=== PATIENT | male | born 1935 | race Caucasian/White ===

== ENCOUNTER 2016-10-18 13:07 | Emergency (ER) | payer MEDICARE, OTHER ==
[~2016-10-18] VITALS: Ht 177.8 cm; Wt 125.0 kg
[~2016-10-18 13:07] MED LIST: AMLO10 PO; ASPI81TA82 PO; ATOR20TA PO; CLOP75 PO; DOXA1 PO; ISOS60 PO; LOTE20TA PO; METO25 PO; NITR0.4S SL; VITA-13
[2016-10-18 13:10] VITALS: BP 140/67; PULSE 61; RESP 16; TEMP 97.8; O2SAT 92
--- NOTE | 2016-10-18 13:29 | PD ---
Physical Exam Date Seen by Provider: Oct 18, 2016 Time Seen by Provider: 13:29 Data Data Last Documented VS Vital Signs Date Time Temp Pulse Resp B/P Pulse Ox O2 Delivery O2 Flow Rate FiO2 10/18/16 13:10 97.8 61 16 140/67 92 10/18/16 13:10 Room Air Orders Electrocardiogram (10/18/16 13:27) B-Type Natriuretic Peptide (10/18/16 13:27) Ckmb (Isoenzyme) Profile (10/18/16 13:27) Complete Blood Count With Diff (10/18/16 13:27) Comprehensive Metabolic Panel (10/18/16 13:27) Magnesium (Mg) (10/18/16 13:27) Prothrombin Time / Inr (Pt) (10/18/16 13:27) Act Partial Throm Time (Ptt) (10/18/16 13:27) Troponin I (10/18/16 13:27) Chest, Single Ap (10/18/16 13:27) Iv Access Insert/Monitor (10/18/16 13:27) Aspirin Chew (Aspirin Chew) (10/18/16 13:30) Sodium Chloride 0.9% Flush (Ns Flush) (10/18/16 13:30) Labs Laboratory Tests Test 10/18/16 13:30 White Blood Count 7.4 TH/MM3 Red Blood Count 4.44 MIL/MM3 Hemoglobin 13.6 GM/DL Hematocrit 40.0 % Mean Corpuscular Volume 90.0 FL Mean Corpuscular Hemoglobin 30.6 PG Mean Corpuscular Hemoglobin 34.0 % Concent Red Cell Distribution Width 13.8 % Platelet Count 157 TH/MM3 Mean Platelet Volume 8.0 FL Neutrophils (%) (Auto) 64.4 % Lymphocytes (%) (Auto) 21.1 % Monocytes (%) (Auto) 8.5 % Eosinophils (%) (Auto) 5.4 % Basophils (%) (Auto) 0.6 % Neutrophils # (Auto) 4.7 TH/MM3 Lymphocytes # (Auto) 1.6 TH/MM3 Monocytes # (Auto) 0.6 TH/MM3 Eosinophils # (Auto) 0.4 TH/MM3 Basophils # (Auto) 0.0 TH/MM3 CBC Comment DIFF FINAL Differential Comment Faustino Carr Oct 18, 2016 13:29
[2016-10-18] MEDS ORDERED: SODIUM CHLORIDE 0.9% FLUSH 10 ML FLUSH IVF PRN (13:30)
[2016-10-18] MEDS ORDERED: ASPIRIN 81 MG CHEW TAB PO ONE (13:30)
[2016-10-18 13:46] LABS: AUTOMATED NEUTROPHIL # 4.7 TH/MM3 (1.8-7.7); BASOPHIL % 0.6 % (0.0-2.0); EOSINOPHIL # 0.4 TH/MM3 (0-0.4); EOSINOPHIL % 5.4 % (0.0-4.0); HEMO FLAGS DIFF FINAL; LYMPH % 21.1 % (9.0-44.0); LYMPHOCYTE # 1.6 TH/MM3 (1.0-4.8); MEAN CORPUSCULAR HEMOGLOBIN 30.6 PG (27.0-34.0); MONO % 8.5 % (0.0-8.0); NEUT % 64.4 % (16.0-70.0); PLATELET COUNT 157 TH/MM3 (150-450); RED BLOOD COUNT 4.44 MIL/MM3 (4.50-5.90); RED CELL DISTRIBUTION WIDTH 13.8 % (11.6-17.2); WHITE BLOOD COUNT 7.4 TH/MM3 (4.0-11.0)
--- NOTE | 2016-10-18 13:52 | PD ---
HPI Chief Complaint: Chest Pain Time Seen by Provider: 13:49 Travel History International Travel<30 days: No Contact w/Intl Traveler<30days: No Traveled to known affect area: No History of Present Illness HPI 80-year-old male presents the emergency department via EMS from the OR clinic with history of chest pain upon awakening this morning. Patient states he had chest pain in the right anterior chest of about a 3 out of 10 which lasted approximately 20-30 minutes. He went to the OR clinic to be evaluated and was given some nitroglycerin with resolution of his symptoms. Currently he has no pain, shortness of breath, nausea, vomiting, or other symptoms. Patient has a history of [place] 3 years ago. Patient is currently on isosorbide and aspirin daily. He sees a clod puller, Dr. Leija through the OR. Patient again is pain-free at this time. He is allergic to aloe, flu vaccine, iodine, and yogurt. PFSH Past Medical History Heart Rhythm Problems: No Cancer: Yes (SKIN) Cardiovascular Problems: Yes Diabetes: No Endocrine: No Genitourinary: No Hepatitis: No Hiatal Hernia: Yes Hypertension: Yes Immune Disorder: No Kidney Stones: Yes Neurologic: No Psychiatric: No Respiratory: Yes (SLEEP APNA) Thyroid Disease: No Past Surgical History AICD: No Eye Surgery: Yes (CATARACTS) Joint Replacement: No Pacemaker: No Other Surgery: Yes (SKIN CA REMOVED) Social History Alcohol Use: Yes ("RARELY") Tobacco Use: No Substance Use: No Allergies-Medications (Allergen,Severity, Reaction): Coded Allergies: Iodine (Verified Allergy, Intermediate, HIVES, 10/18/16) Flu Vaccine (Verified Allergy, Unknown, Swelling, 10/18/16) Yogurt (Verified Adverse Reaction, Severe, SORE THROAT, 10/18/16) Uncoded Allergies: ALOE (Allergy, Severe, Rash, 12/18/15) Reported Meds & Prescriptions Reported Meds & Active Scripts Active Reported Nitrostat (Nitroglycerin) 0.4 Mg Sub 0.4 Mg SL ONCE Vitamin D3 1000 Unit Tab (Cholecalciferol) 1,000 Unit Tab 1,000 Unit .XX Aspir-81 (Aspirin) 81 Mg Tab 81 Mg PO DAILY Atorvastatin 20 mg tab (Atorvastatin Calcium) 20 Mg Tab 20 Mg PO DAILY 30 Days Metoprolol Tartrate 25 mg (Metoprolol Tartrate) 25 Mg Tab 25 Mg PO BID Imdur 60 Mg (Isosorbide Mononitrate) 60 Mg Tabcr 30 Mg PO DAILY Plavix (Clopidogrel Bisulfate) 75 Mg Tab 75 Mg PO DAILY Doxazosin Mesylate 4 Mg Tab 4 Mg PO DAILY Norvasc (Amlodipine Besylate) 10 Mg Tab 10 Mg PO DAILY Lotensin (Benazepril HCl) 20 Mg Tab 20 Mg PO BID Review of Systems Except as stated in HPI: all other systems reviewed are Neg General / Constitutional: No: Fever Eyes: No: Visual changes HENT: No: Headaches Cardiovascular: No: Chest Pain or Discomfort Respiratory: No: Shortness of Breath Gastrointestinal: No: Abdominal Pain Genitourinary: No: Dysuria Musculoskeletal: No: Pain Skin: No Rash Neurologic: No: Weakness Psychiatric: No: Depression Endocrine: No: Polydipsia Hematologic/Lymphatic: No: Easy Bruising Physical Exam Narrative GENERAL: Patient appears calm and in no acute distress. SKIN: Warm and dry. Normal color. Normal turgor. No diaphoresis. HEAD: Atraumatic. Normocephalic. EYES: Pupils equal and round. No scleral icterus. No injection or drainage. ENT: No nasal bleeding or discharge. Mucous membranes pink and moist. Thanks is clear. Airway is patent. NECK: Trachea midline. Supple and nontender. CARDIOVASCULAR: Regular rate and rhythm. No murmurs gallops or rubs. RESPIRATORY: No accessory muscle use. Clear to auscultation. Breath sounds equal bilaterally. GASTROINTESTINAL: Abdomen soft, non-tender, nondistended. Hepatic and splenic margins not palpable. MUSCULOSKELETAL: Extremities without clubbing, cyanosis, or edema. No obvious deformities. NEUROLOGICAL: Awake and alert. No obvious cranial nerve deficits. Motor grossly within normal limits. Five out of 5 muscle strength in the arms and legs. Normal speech. PSYCHIATRIC: Appropriate mood and affect; insight and judgment normal. Data Data Last Documented VS Vital Signs Date Time Temp Pulse Resp B/P Pulse Ox O2 Delivery O2 Flow Rate FiO2 10/18/16 13:10 97.8 61 16 140/67 92 10/18/16 13:10 Room Air Orders Electrocardiogram (10/18/16 13:27) B-Type Natriuretic Peptide (10/18/16 13:27) Ckmb (Isoenzyme) Profile (10/18/16 13:27) Complete Blood Count With Diff (10/18/16 13:27) Comprehensive Metabolic Panel (10/18/16 13:27) Magnesium (Mg) (10/18/16 13:27) Prothrombin Time / Inr (Pt) (10/18/16 13:27) Act Partial Throm Time (Ptt) (10/18/16 13:27) Troponin I (10/18/16 13:27) Chest, Single Ap (10/18/16 13:27) Iv Access Insert/Monitor (10/18/16 13:27) Aspirin Chew (Aspirin Chew) (10/18/16 13:30) Sodium Chloride 0.9% Flush (Ns Flush) (10/18/16 13:30) CKMB (10/18/16 13:30) CKMB% (10/18/16 13:30) Labs Laboratory Tests Test 10/18/16 13:30 White Blood Count 7.4 TH/MM3 Red Blood Count 4.44 MIL/MM3 Hemoglobin 13.6 GM/DL Hematocrit 40.0 % Mean Corpuscular Volume 90.0 FL Mean Corpuscular Hemoglobin 30.6 PG Mean Corpuscular Hemoglobin 34.0 % Concent Red Cell Distribution Width 13.8 % Platelet Count 157 TH/MM3 Mean Platelet Volume 8.0 FL Neutrophils (%) (Auto) 64.4 % Lymphocytes (%) (Auto) 21.1 % Monocytes (%) (Auto) 8.5 % Eosinophils (%) (Auto) 5.4 % Basophils (%) (Auto) 0.6 % Neutrophils # (Auto) 4.7 TH/MM3 Lymphocytes # (Auto) 1.6 TH/MM3 Monocytes # (Auto) 0.6 TH/MM3 Eosinophils # (Auto) 0.4 TH/MM3 Basophils # (Auto) 0.0 TH/MM3 CBC Comment DIFF FINAL Differential Comment Prothrombin Time 10.8 SEC Prothromb Time International 1.0 RATIO Ratio Activated Partial 23.1 SEC Thromboplast Time Sodium Level 144 MEQ/L Potassium Level 4.0 MEQ/L Chloride Level 110 MEQ/L Carbon Dioxide Level 28.3 MEQ/L Anion Gap 6 MEQ/L Blood Urea Nitrogen 16 MG/DL Creatinine 0.93 MG/DL Estimat Glomerular Filtration 78 ML/MIN Rate Random Glucose 104 MG/DL Calcium Level 8.4 MG/DL Magnesium Level 2.2 MG/DL Total Bilirubin 0.5 MG/DL Aspartate Amino Transf 14 U/L (AST/SGOT) Alanine Aminotransferase 17 U/L (ALT/SGPT) Alkaline Phosphatase 44 U/L Total Creatine Kinase 112 U/L Creatine Kinase MB 2.5 NG/ML Troponin I LESS THAN 0.02 NG/ML B-Type Natriuretic Peptide 83 PG/ML Total Protein 5.8 GM/DL Albumin 3.0 GM/DL MDM Medical Decision Making Medical Screen Exam Complete: Yes Emergency Medical Condition: Yes Medical Record Reviewed: Yes Differential Diagnosis Chest pain. Cardiac syndrome. Angina. Narrative Course Patient is medically stable at time of exam. Labs ordered including CBC, CMP, chest x-ray, and cardiac panel. EKG is performed showing normal sinus rhythm without significant ST-T changes. Patient is seen in the ambulatory is awaiting that they placement. Patient is given 324 mg aspirin chewable by mouth. CBC is unremarkable. CMP is unremarkable. First troponin is less than 0.02. Coagulation studies are normal. Chest x-ray shows no acute process per radiologist. I discussed the findings with the patient and recommend that he stay in the chest pain center for further evaluation of atypical chest pain. Patient states that he wants to leave AGAINST MEDICAL ADVICE and [facility] AGAINST MEDICAL ADVICE Paperwork was drawn up and signed by the patient was released [facility]. Diagnosis Primary Impression: Left against medical advice Additional Impression: Atypical chest pain Disposition: 07 AGAINST MEDICAL ADVICE Condition: Stable Faustino Carr Oct 18, 2016 13:52
[2016-10-18 13:57] LABS: APTT (PATIENT) 23.1 SEC (24.3-30.1); PROTHROMBIN TIME - PATIENT 10.8 SEC (9.8-11.6)
[2016-10-18 14:03] LABS: ANION GAP 6 MEQ/L (5-15); AST (GOT) 14 U/L (15-37); BICARBONATE 28.3 MEQ/L (21.0-32.0); BLOOD UREA NITROGEN 16 MG/DL (7-18); CHLORIDE 110 MEQ/L (98-107); GLOMERULAR FILTRATION RATE 78 ML/MIN (>89); MAGNESIUM 2.2 MG/DL (1.5-2.5); SODIUM (NA) 144 MEQ/L (136-145)
[2016-10-18 14:09] LABS: ALKALINE PHOSPHATASE 44 U/L (45-117); ALT (GPT) 17 U/L (12-78); CREATINE KINASE 112 U/L (39-308); TOTAL BILIRUBIN ADULT 0.5 MG/DL (0.2-1.0)
[2016-10-18 14:21] LABS: CKMB 2.5 NG/ML (0.5-3.6)
--- NOTE | 2016-10-18 14:47 | RADRPT ---
EXAM DATE/TIME: 10/18/2016 14:13 [facility] COMPARISON: CHEST SINGLE AP, October 15, 2013, 22:09. INDICATIONS : Chest pain and shortness of breath. MEDICAL HISTORY : None. SURGICAL HISTORY : None. ENCOUNTER: Initial ACUITY: 1 day PAIN SCORE: 4/10 LOCATION: Bilateral chest FINDINGS: The lungs are clear without infiltrate, nodule, or mass. There is no appreciable pleural effusion fo r technique. Heart and mediastinum are unremarkable. CONCLUSION: No acute cardiopulmonary disease. Adela Garcia MD on October 18, 2016 at 14:45 Board Certified Radiologist. This report was verified electronically.
--- NOTE | 2016-10-19 16:08 | EKG ---
Date Performed: 10/18/2016 Time Performed: 13:14:46 PTAGE: 80 years EKG: SINUS BRADYCARDIA BORDERLINE ECG INTERPRETATION BASED ON A DEFAULT AGE OF 41 YEARS PREVIOUS TRACING : 10/16/2013 03.35 Since previous tracing, heart rate slightly slower, o therwise no significant change. DOCTOR: Jagjit Holliday Interpretating Date/Time 10/19/2016 16:07:01
== END 2016-10-18 15:25 | disposition left against medical advice (07) ==
LOC: NEPE 13:07
DX: R07.89 Other chest pain (principal); R06.02 Shortness of breath; R00.1 Bradycardia, unspecified; I10 Essential (primary) hypertension; I25.2 Old myocardial infarction; Z87.442 Personal history of urinary calculi; Z79.02 Long term (current) use of antithrombotics/antiplatelets
CPT/HCPCS: 71010; 80053; 82550; 82552; 83735; 83880; 84484; 85025; 85610; 85730; 93005; 99285